=== PATIENT | female | born 1980 | race Caucasian/White ===

== ENCOUNTER 2016-06-09 12:06 | Emergency (ER) | payer MEDICAID ==
[2016-06-09 12:50] LABS: BASOPHILS 0.3 % (0.0-2.0); EOSINOPHILS 0.9 % (0-7); HEMATOCRIT 38.9 % (36.0-48.0); HEMOGLOBIN 12.6 g/dL (12-16); IMMATURE GRANULOCYTES 0.1 % (0-5); MCH 29.2 pg (26.0-34.0); MCHC 32.4 g/dL (31.0-37.0); MCV 90.3 fL (80.0-100.0); MEAN PLATELET VOLUME 11.1 fL (7.4-10.4); MONOCYTES 12.5 % (2-11); NEUTROPHILS 58.2 % (40-80); RBC 4.31 10x6/uL (4.00-5.40); RDW 12.7 % (11.5-14.5); WBC 7.8 10x3/uL (4.8-10.8)
[2016-06-09 13:10] LABS: ALBUMIN 3.9 g/dL (3.4-5.0); ALKALINE PHOSPHATASE 58 U/L (46-116); ALT (SGPT) 17 U/L (10-68); CALC OSMOLALITY 277 mosm/kg (275-300); CALCIUM 8.7 mg/dL (8.5-10.1); CARBON DIOXIDE 24.3 mmol/L (21.0-32.0); CHLORIDE - SERUM 107 mmol/L (98-107); CREATININE - SERUM 0.8 mg/dL (0.6-1.3); GLUCOSE 105 mg/dL (74-106); PROTEIN - SERUM 6.8 g/dL (6.4-8.2); SODIUM 140 mmol/L (136-145); UREA NITROGEN 9 mg/dL (7-18); eGFR NON AFRICAN AMERICAN 85 mL/min (90-120)
[2016-06-09 13:13] LABS: PLATELET COUNT 193 10x3/uL (130-400)
[2016-06-09 14:53] LABS: APPEARANCE HAZY (CLEAR); BILIRUBIN NEGATIVE (NEGATIVE); COLOR YELLOW (YELLOW); GLUCOSE NEGATIVE (NEGATIVE); KETONE NEGATIVE (NEGATIVE); LEUKOCYTE ESTERASE NEGATIVE (NEGATIVE); NITRITE NEGATIVE (NEGATIVE); PROTEIN NEGATIVE (NEGATIVE); SPECIFIC GRAVITY 1.015 (1.005-1.020); UROBILINOGEN NORMAL (NORMAL)
== END 2016-06-09 17:16 | disposition home or self-care (01) ==
LOC: D.ER 12:06
PROVIDERS: Family Medicine
DX: R10.32 Left lower quadrant pain (principal); K62.5 Hemorrhage of anus and rectum; K60.2 Anal fissure, unspecified; K21.9 Gastro-esophageal reflux disease without esophagitis; F31.9 Bipolar disorder, unspecified; E11.9 Type 2 diabetes mellitus without complications; G40.909 Epilepsy, unspecified, not intractable, without status epilepticus; M79.7 Fibromyalgia; F43.10 Post-traumatic stress disorder, unspecified; Z86.73 Personal history of transient ischemic attack (TIA), and cerebral infarction without residual deficits

== ENCOUNTER 2016-09-19 14:51 | Emergency (ER) | payer MEDICARE | END 2016-09-19 19:02 | disposition home or self-care (01) | LOC: D.ER 14:51 | DX: K59.00 Constipation, unspecified (principal); K21.9 Gastro-esophageal reflux disease without esophagitis; F31.89 Other bipolar disorder; G40.909 Epilepsy, unspecified, not intractable, without status epilepticus; F43.10 Post-traumatic stress disorder, unspecified; F17.200 Nicotine dependence, unspecified, uncomplicated ==

== ENCOUNTER 2016-11-08 13:08 | Emergency (ER) | payer MEDICARE ==
[2016-11-08 14:01] LABS: BASOPHILS 0.2 % (0-2); EOSINOPHILS 0.7 % (0-7); HEMATOCRIT 41.5 % (36.0-48.0); HEMOGLOBIN 13.8 g/dL (12-16); IMMATURE GRANULOCYTES 0.2 % (0-5); LYMPHOCYTES 22.7 % (15-50); MCH 29.7 pg (26.0-34.0); MCHC 33.3 g/dL (31.0-37.0); MCV 89.4 fL (80.0-100.0); MEAN PLATELET VOLUME 11.4 fL (7.4-10.4); MONOCYTES 9.6 % (2-11); NEUTROPHILS 66.6 % (40-80); PLATELET COUNT 207 10x3/uL (130-400); RBC 4.64 10x6/uL (4.00-5.40); RDW 12.9 % (11.5-14.5); WBC 9.2 10x3/uL (4.8-10.8)
[2016-11-08 14:13] LABS: ALBUMIN 4.2 g/dL (3.4-5.0); ANION GAP 16.4 mmol/L (8-16); BILIRUBIN - TOTAL 0.55 mg/dL (0.2-1.3); CALCIUM 9.1 mg/dL (8.5-10.1); CARBON DIOXIDE 20.8 mmol/L (21.0-32.0); POTASSIUM - SERUM 4.2 mmol/L (3.5-5.1); PROTEIN - SERUM 7.3 g/dL (6.4-8.2)
== END 2016-11-08 16:15 | disposition home or self-care (01) ==
LOC: D.ER 13:08
PROVIDERS: Nurse Practitioner Family
DX: G44.209 Tension-type headache, unspecified, not intractable (principal); S16.1XXA Strain of muscle, fascia and tendon at neck level, initial encounter; X58.XXXA Exposure to other specified factors, initial encounter; Y93.89 Activity, other specified; Y92.89 Other specified places as the place of occurrence of the external cause; M62.838 Other muscle spasm; K21.9 Gastro-esophageal reflux disease without esophagitis; F31.89 Other bipolar disorder

== ENCOUNTER 2017-03-18 10:55 | Emergency (ER) | payer MEDICARE | END 2017-03-18 14:02 | disposition home or self-care (01) | LOC: D.ER 10:55 | DX: J06.9 Acute upper respiratory infection, unspecified (principal); J01.90 Acute sinusitis, unspecified; J20.9 Acute bronchitis, unspecified; K21.9 Gastro-esophageal reflux disease without esophagitis; E11.9 Type 2 diabetes mellitus without complications; F17.200 Nicotine dependence, unspecified, uncomplicated ==

== ENCOUNTER 2017-04-05 16:29 | Emergency (ER) | payer MEDICARE | END 2017-04-05 17:27 | disposition home or self-care (01) | LOC: D.ER 16:29 | DX: K08.89 Other specified disorders of teeth and supporting structures (principal) ==

== ENCOUNTER 2017-07-12 17:11 | Emergency (ER) | payer MEDICARE | END 2017-07-12 19:26 | disposition home or self-care (01) | LOC: D.ER 17:11 | DX: M54.16 Radiculopathy, lumbar region (principal); F17.200 Nicotine dependence, unspecified, uncomplicated ==

== ENCOUNTER 2017-10-07 23:33 | Emergency (ER) | payer MEDICARE ==
[~2017-10-07] VITALS: Ht 160 cm; Wt 75.0 kg
[2017-10-08 00:05] VITALS: Ht 160 cm; Wt 75.0 kg
[2017-10-08] MEDS ORDERED: TROKENDI XR100 MG PO (00:08)
[2017-10-08] MEDS ORDERED: DEPAKOTE500 MG PO (00:08)
[2017-10-08] MEDS ORDERED: ESTRACE2 MG PO (00:09)
[2017-10-08] MEDS ORDERED: PROPAFENONE HC225 MG PO (00:09)
[2017-10-08] MEDS ORDERED: VALIUM 2 MG TAB2 MG PO (02:01)
[2017-10-08 02:37] VITALS: BP 118/86
== END 2017-10-08 02:30 | disposition home or self-care (01) ==
LOC: D.ER 23:33
DX: M62.838 Other muscle spasm (principal); S29.012A Strain of muscle and tendon of back wall of thorax, initial encounter; X58.XXXA Exposure to other specified factors, initial encounter; Y93.89 Activity, other specified; Y92.019 Unspecified place in single-family (private) house as the place of occurrence of the external cause; M54.2 Cervicalgia; F17.200 Nicotine dependence, unspecified, uncomplicated

== ENCOUNTER 2017-12-21 21:28 | Emergency (ER) | payer MEDICARE ==
[~2017-12-21] VITALS: Ht 160 cm; Wt 77.3 kg
[~2017-12-21 21:28] MED LIST: DEPAKOTE500 MG PO; ESTRACE2 MG PO; PROPAFENONE HC225 MG PO; TROKENDI XR100 MG PO; VALIUM 2 MG TAB2 MG PO
[2017-12-21 21:50] VITALS: Ht 160 cm; Wt 77.3 kg
[2017-12-22] MEDS ORDERED: HYDROCODONE-APA1 TAB PO (01:16)
[2017-12-22] MEDS ORDERED: ZANAFLEX4 MG PO (01:16)
[2017-12-22 01:41] VITALS: BP 127/82
== END 2017-12-22 01:28 | disposition home or self-care (01) ==
LOC: D.ER 21:28
DX: M54.12 Radiculopathy, cervical region (principal); S16.1XXA Strain of muscle, fascia and tendon at neck level, initial encounter; X50.0XXA Overexertion from strenuous movement or load, initial encounter; Y93.89 Activity, other specified; Y92.89 Other specified places as the place of occurrence of the external cause; G40.909 Epilepsy, unspecified, not intractable, without status epilepticus; F17.200 Nicotine dependence, unspecified, uncomplicated

== ENCOUNTER → 2018-02-17 11:03 | Outpatient (CLI) | payer MEDICARE ==
[2017-12-21 21:50] VITALS: BMI 30.1
[~2018-02-17 11:03] MED LIST changes: +HYDROCODONE-APA1 TAB PO; +ZANAFLEX4 MG PO
== END | disposition home or self-care (01) ==
LOC: D.US 11:03
DX: R22.9 Localized swelling, mass and lump, unspecified (principal)

== ENCOUNTER 2019-01-30 12:54 | Emergency (ER) | payer MEDICARE ==
[~2019-01-30] VITALS: Ht 160 cm; Wt 76.4 kg
[2019-01-30 13:17] VITALS: BP 114/78; Ht 160 cm; Wt 76.4 kg
== END 2019-01-30 13:51 | disposition left against medical advice (07) ==
LOC: D.ER 12:54
DX: R25.2 Cramp and spasm (principal)

== ENCOUNTER 2019-03-11 13:09 | Emergency (ER) | payer MEDICARE ==
[~2019-03-11] VITALS: Ht 160 cm; Wt 72.7 kg
[2019-03-11 13:18] VITALS: Ht 160 cm; Wt 72.7 kg
[2019-03-11 13:41] LABS: APPEARANCE CLEAR (CLEAR); BILIRUBIN NEGATIVE (NEGATIVE); COLOR STRAW (YELLOW); GLUCOSE NEGATIVE (NEGATIVE); KETONE NEGATIVE (NEGATIVE); NITRITE NEGATIVE (NEGATIVE); PROTEIN NEGATIVE (NEGATIVE); UROBILINOGEN NORMAL (NORMAL)
[2019-03-11 13:47] LABS: BASOPHILS 0.2 % (0-2); EOSINOPHILS 1.5 % (0-7); HEMATOCRIT 42.8 % (36.0-48.0); HEMOGLOBIN 14.1 g/dL (12-16); IMMATURE GRANULOCYTES 0.3 % (0-5); LYMPHOCYTES 27.6 % (15-50); MCH 29.8 pg (26.0-34.0); MCHC 32.9 g/dL (31.0-37.0); MCV 90.5 fL (80.0-100.0); MEAN PLATELET VOLUME 10.3 fL (7.4-10.4); MONOCYTES 11.7 % (2-11); NEUTROPHILS 58.7 % (40-80); PLATELET COUNT 241 10x3/uL (130-400); RBC 4.73 10x6/uL (4.00-5.40); RDW 12.3 % (11.5-14.5); WBC 8.8 10x3/uL (4.8-10.8)
[2019-03-11 13:54] LABS: INR 1.12 (0.85-1.17); PROTIME 13.9 SECONDS (11.6-15.0)
[2019-03-11 13:55] LABS: APTT 31.7 SECONDS (22.8-39.4)
[2019-03-11 13:57] LABS: ANION GAP 14.6 mmol/L (8-16); CARBON DIOXIDE 25.3 mmol/L (21.0-32.0); CREATININE - SERUM 0.9 mg/dL (0.6-1.3); POTASSIUM - SERUM 3.9 mmol/L (3.5-5.1)
[2019-03-11 14:03] LABS: ALBUMIN 3.9 g/dL (3.4-5.0); BILIRUBIN - TOTAL 0.36 mg/dL (0.2-1.3); PROTEIN - SERUM 7.2 g/dL (6.4-8.2)
[2019-03-11] MEDS ORDERED: PROCTOFOAM-HC 110 GM RC (17:25)
[2019-03-11] MEDS ORDERED: FIBER THERAPY1368 GM PO (17:25)
[2019-03-11 17:49] VITALS: BP 124/73
== END 2019-03-11 17:50 | disposition home or self-care (01) ==
LOC: D.ER 13:09
PROVIDERS: Family Medicine
DX: K64.8 Other hemorrhoids (principal); R10.9 Unspecified abdominal pain; R56.9 Unspecified convulsions; M79.7 Fibromyalgia; G43.909 Migraine, unspecified, not intractable, without status migrainosus; F43.10 Post-traumatic stress disorder, unspecified; F31.9 Bipolar disorder, unspecified; Z72.0 Tobacco use

== ENCOUNTER 2019-04-10 12:10 | Inpatient (IN) | payer MEDICARE ==
[~2019-04-10] VITALS: Ht 160 cm; Wt 81.6 kg
[~2019-04-10 12:10] MED LIST changes: +FIBER THERAPY1368 GM PO; +PROCTOFOAM-HC 110 GM RC
[2019-04-10] MEDS ORDERED: KEFLEX (12:27)
[2019-04-10 12:48] LABS: BASOPHILS 0.1 % (0-2); EOSINOPHILS 0.3 % (0-7); HEMOGLOBIN 13.5 g/dL (12-16); IMMATURE GRANULOCYTES 0.3 % (0-5); LYMPHOCYTES 20.6 % (15-50); MCH 29.5 pg (26.0-34.0); MCHC 32.9 g/dL (31.0-37.0); MCV 89.5 fL (80.0-100.0); MEAN PLATELET VOLUME 10.1 fL (7.4-10.4); MONOCYTES 7.9 % (2-11); NEUTROPHILS 70.8 % (40-80); RBC 4.58 10x6/uL (4.00-5.40); RDW 12.6 % (11.5-14.5); WBC 9.8 10x3/uL (4.8-10.8)
[2019-04-10 12:51] LABS: APPEARANCE CLEAR (CLEAR); BILIRUBIN NEGATIVE (NEGATIVE); COLOR YELLOW (YELLOW); GLUCOSE NEGATIVE (NEGATIVE); KETONE NEGATIVE (NEGATIVE); NITRITE NEGATIVE (NEGATIVE); PROTEIN NEGATIVE (NEGATIVE); UROBILINOGEN NORMAL (NORMAL)
[2019-04-10 12:53] LABS: PLATELET COUNT 290 10x3/uL (130-400)
[2019-04-10 13:06] LABS: CALC OSMOLALITY 276 mosm/kg (275-300); CALCIUM 9.5 mg/dL (8.5-10.1); CARBON DIOXIDE 25.1 mmol/L (21.0-32.0); CHLORIDE - SERUM 105 mmol/L (98-107); CREATININE - SERUM 0.7 mg/dL (0.6-1.3); GLUCOSE 102 mg/dL (74-106); POTASSIUM - SERUM 4.5 mmol/L (3.5-5.1); SODIUM 140 mmol/L (136-145); UREA NITROGEN 8 mg/dL (7-18); eGFR NON AFRICAN AMERICAN > 90 mL/min (90-120)
[2019-04-10 13:14] LABS: ALBUMIN 4.1 g/dL (3.4-5.0); ALKALINE PHOSPHATASE 88 U/L (46-116); ALT (SGPT) 39 U/L (10-68); AMYLASE - SERUM 65 U/L (25-115); LIPASE 82 U/L (73-393); PROTEIN - SERUM 7.3 g/dL (6.4-8.2)
[2019-04-10 13:15] LABS: TROPONIN-I < 0.017 ng/mL (0.000-0.060)
[2019-04-10 14:00] VITALS: BP 107/65
[2019-04-10 15:00] VITALS: BP 103/65
[2019-04-10 16:00] VITALS: BP 119/78
--- NOTE | 2019-04-10 18:00 | NUR ---
MERREM INFUSION COMPLETE AT 1743.
[2019-04-10] MEDS ORDERED: DEPAKOTE500 MG PO (18:11)
[2019-04-10] MEDS ORDERED: CYMBALTA60 MG PO (18:13)
[2019-04-10] MEDS ORDERED: CYMBALTA30 MG PO (18:13)
[2019-04-10 18:17] VITALS: BP 124/77
[2019-04-10 18:21] LABS: APTT 31.5 SECONDS (22.8-39.4); INR 1.12 (0.85-1.17); PROTIME 13.9 SECONDS (11.6-15.0)
[2019-04-10 18:39] VITALS: BP 124/77; BMI 31.9
[2019-04-10 19:30] VITALS: BP 111/72
--- NOTE | 2019-04-10 21:35 | NUR ---
OFFERED PT HYDROCODONE 5MG ORDERED BY MARSHALL SULTANA. SHE REFUSED AND STATES, "I TAKE 10MG ALL OF THE TIME AND I KNOW 5MG ISNT GOING TO DO ANYTHING SO I DONT WANT IT." ASKED PT WHAT SHE WANTED AND SHE STATES, "I HAVE TAKEN PERCOCET AND NORCO 10MG." PT THEN ASKING WHY SHE IS JUST GETTING NS IN IV. STATES, "I'M SUPPOSED TO BE ON ANTIBIOTICS FOR AN INFECTION AND ALL YOURE GIVING ME IS SALINE?" ATTEMPTED TO EXPLAIN TO PT THAT SHE GOT IV ANTIBIOTICS EARLIER AND THEY ARENT DUE AGAIN UNTIL 3 AM. SHE STAES, "WELL, IM GOING HOME TOMORROW ANYWAY." REPORTED THIS TO MARSHALL SULTANA. NEW ORDER NOTED FOR NORCO 10MG Q 8 HOURS.
--- NOTE | 2019-04-10 21:45 | NUR ---
MEDICATED WITH NORCO 10 MG FOR C/O LLQ PAIN
--- NOTE | 2019-04-10 22:20 | NUR ---
CONSUMED 2 ORANGE JELLOS THEN CALLED STAFF INTO ROOM TO SAY SHE HAD VOMITED IN TRASHCAN. MEDICATED WITH ZOFRAN ORDERED. CL IN REACH.
--- NOTE | 2019-04-10 22:39 | NUR ---
VOMITED SMALL AMOUNT OF ORANGE EMESIS IN TRASHCAN AFTER EATING ORANGE JELLO. MEDICATED WITH ZOFRAN FOR NAUSEA. CL IN REACH.
[2019-04-11 00:15] VITALS: BP 107/72
--- NOTE | 2019-04-11 02:52 | NUR ---
RESTING WITH EYES CLOSED. RESP EVEN AND NONLABORED. CL IN REACH.
--- NOTE | 2019-04-11 03:40 | NUR ---
AWAKENED FOR V/S. NO COMPLAINTS. NO DISTRESS. CL IN REACH.
[2019-04-11 03:49] VITALS: BP 117/75
[2019-04-11 06:32] LABS: BASOPHILS 0.2 % (0-2); HEMATOCRIT 36.6 % (36.0-48.0); HEMOGLOBIN 11.7 g/dL (12-16); IMMATURE GRANULOCYTES 0.2 % (0-5); LYMPHOCYTES 26.2 % (15-50); MCH 28.9 pg (26.0-34.0); MCV 90.4 fL (80.0-100.0); MEAN PLATELET VOLUME 10.3 fL (7.4-10.4); MONOCYTES 12.6 % (2-11); NEUTROPHILS 59.8 % (40-80); PLATELET COUNT 238 10x3/uL (130-400); RBC 4.05 10x6/uL (4.00-5.40); RDW 12.5 % (11.5-14.5)
[2019-04-11 06:41] LABS: WBC 6.3 10x3/uL (4.8-10.8)
[2019-04-11 07:00] VITALS: BP 108/70
--- NOTE | 2019-04-11 07:00 | NUR ---
PT REPORT RECEIVED FROM FLIGHT SERVICE SPECIALIST NURSE. SHIFT ASSESSMENT COMPLETED AT THIS TIME. NO VISIBLE SIGNS OF DISTRESS NOTED. WILL CONTINUE TO MONITOR
[2019-04-11 07:09] LABS: ALBUMIN 3.3 g/dL (3.4-5.0); ALKALINE PHOSPHATASE 71 U/L (46-116); ALT (SGPT) 31 U/L (10-68); BILIRUBIN - TOTAL 0.46 mg/dL (0.2-1.3); CALC OSMOLALITY 281 mosm/kg (275-300); CALCIUM 8.3 mg/dL (8.5-10.1); CARBON DIOXIDE 25.9 mmol/L (21.0-32.0); CHLORIDE - SERUM 108 mmol/L (98-107); CREATININE - SERUM 0.7 mg/dL (0.6-1.3); GLUCOSE 94 mg/dL (74-106); MAGNESIUM - SERUM 1.8 mg/dL (1.8-2.4); PHOSPHOROUS 4.5 mg/dL (2.5-4.9); POTASSIUM - SERUM 3.9 mmol/L (3.5-5.1); PROTEIN - SERUM 5.9 g/dL (6.4-8.2); SODIUM 142 mmol/L (136-145); UREA NITROGEN 9 mg/dL (7-18); VALPROIC ACID (DEPAKOTE) 3.5 ug/mL (50.0-100.0); eGFR NON AFRICAN AMERICAN > 90 mL/min (90-120)
--- NOTE | 2019-04-11 08:15 | NUR ---
PT COMPLAINING OF N/V. SAW PT DRY HEAVING INTO BAG. NO VOMIT NOTED. GAVE PT ZOFRAN. WILL CONTINUE TO MONITOR
[2019-04-11 11:00] VITALS: BP 110/75
--- NOTE | 2019-04-11 11:00 | NUR ---
DR ROCK MAKING ROUNDS. AT BEDSIDE. UPDATE GIVEN. WILL CONTINUE TO MONITOR
[2019-04-11 13:44] VITALS: Ht 160 cm; Wt 81.6 kg
[2019-04-11 15:00] VITALS: BP 122/84
--- NOTE | 2019-04-11 16:30 | MORECARE ---
CASE MANAGEMENT DISCHARGE SUMMARY PATIENT: AFSHIN PEARCE UNIT: [id number] ADM DATE: 04/10/19 AGE: 38 : [birth year] SEX: F ROOM/BED: D.1205 AUTHOR: JOLIE BOLANOS PHYSICIAN: REFERRING PHYSICIAN: RAFAEL ROCK MD DATE OF SERVICE: 04/11/19 Discharge Plan Patient Name: AFSHIN PEARCE [facility] [facility] 1980 Planned Disposition: Home Anticipated Discharge Date: Discharge Date: Expected LOS: Initial Reviewer: [email or web address] Initial Review Date: 04/11/2019 Generated: 04/11/19 5:30 pm Comments DCP- Discharge Planning Updated by [id number]: Anca Rodríguez on 04/11/19 3:[address] Patient Name: AFSHIN PEARCE Admission Status: ER Accout number: [id number] Admission Date: 04-10-2019 : 1980 Admission Diagnosis: Attending: RAFAEL GROSS Current LOS: 1 Anticipated DC Date: Planned Disposition: Home Primary Insurance: MEDICARE A & B Discharge Planning Comments: CM MET WITH PATIENT AFTER OBTAINING VERBAL CONSENT. STATES PLANS TO DISCHARGE TO HOME. DISCUSSED NEED FOR HH, REHAB OR EQUIPMENT, PATIENT STATES NO NEEDS. CM WILL FOLLOW AND ASSIST NEEDED. Gravure Printing Machinist: Anca Rodríguez DCPIA - Discharge Planning Initial Assessment Updated by [email or web address]: Anca Rodríguez on 04/11/19 4:26 pm * Is the patient Alert and Oriented? Yes * PCP CALDERON * Pharmacy [facility] * Preadmission Environment Home with Family * ADLs Independent * Please name any agencies selected above. NONE * Additional services required to return to the preadmission environment? No * Can the patient safely return to the preadmission environment? Yes * Has this patient been hospitalized within the prior 30 days at any hospital? No Patient Name: AFSHIN PEARCE Page 25526 at 1630 All edits/amendments must be made on the electronic document DICTATION DATE: 04/11/19 1630 HEALTH CENTER ASSISTANT: MARGOTH 04/11/19 1630 RPT#: [id number] DC DATE: STATUS: ADM IN [facility] [address] [facility] [place] [address] END OF REPORT
--- NOTE | 2019-04-11 18:30 | NUR ---
PT COMPLAINING OF PAIN. GIVEN NORCO 10. WILL CONTINUE TO MONITOR
[2019-04-11 19:15] VITALS: BP 122/82
--- NOTE | 2019-04-11 19:15 | NUR ---
PATIENT RESTING IN BED AND DENIES NEEDS AT THIS TIME. BED IN LOWEST POSITION AND CALL LIGHT WITHIN REACH. ENCOURAGED THE PATIENT TO CALL IF SHE HAS NEEDS. VSS. WILL CONTINUE TO MONITOR.
--- NOTE | 2019-04-11 20:49 | NUR ---
PATIENT RESTING IN BED WITH GUEST AT BEDSIDE. REQUESTED PERMISSION TO REVIEW AND ADMINISTER MEDS WITH GUEST IN ROOM. PATIENT AGREED. ADMINISTERED MEDS PER ORDERS. PATIENT DENIES OTHER NEEDS AT THIS TIME. BED IN LOWEST POSITION AND CALL LIGHT WITHIN REACH. ENCOURAGED THE PATIENT TO CALL IF SHE HAS NEEDS. WILL CONTINUE TO MONITOR.
[2019-04-12 03:12] VITALS: BP 122/84
[2019-04-12 05:38] LABS: BASOPHILS 0.3 % (0-2); HEMATOCRIT 34.5 % (36.0-48.0); HEMOGLOBIN 11.1 g/dL (12-16); IMMATURE GRANULOCYTES 0.1 % (0-5); LYMPHOCYTES 24.7 % (15-50); MCH 28.8 pg (26.0-34.0); MCHC 32.2 g/dL (31.0-37.0); MCV 89.6 fL (80.0-100.0); MEAN PLATELET VOLUME 10.8 fL (7.4-10.4); MONOCYTES 10.7 % (2-11); NEUTROPHILS 63.2 % (40-80); PLATELET COUNT 230 10x3/uL (130-400); RBC 3.85 10x6/uL (4.00-5.40); RDW 12.3 % (11.5-14.5); WBC 6.8 10x3/uL (4.8-10.8)
[2019-04-12 06:07] LABS: CALC OSMOLALITY 278 mosm/kg (275-300); CHLORIDE - SERUM 108 mmol/L (98-107); CREATININE - SERUM 0.8 mg/dL (0.6-1.3); GLUCOSE 96 mg/dL (74-106); MAGNESIUM - SERUM 1.5 mg/dL (1.8-2.4); SODIUM 141 mmol/L (136-145); eGFR NON AFRICAN AMERICAN 84 mL/min (90-120)
[2019-04-12 06:08] LABS: UREA NITROGEN 6 mg/dL (7-18)
[2019-04-12 07:00] VITALS: BP 141/97
--- NOTE | 2019-04-12 07:15 | NUR ---
REPORT RECEIVED. PT SITTING UP IN BED. IV TO RIGHT AC WITH NORMAL SALINE AT 125ML/HR AND ZOFRAN DRIP. PT IS ALERT AND ORIENTED AND GETS UP AD ACE. DENIES NAUSEA AT THIS TIME. PT DIET ADVANCED TO FULL LIQUID. VSS. NO OTHER NEEDS AT THIS TIME. WILL CONTINUE TO MONITOR.
--- NOTE | 2019-04-12 09:30 | NUR ---
FAMILY AT BEDSIDE. TYLENOL WAS GIVEN FOR PAIN. NO OTHER NEEDS AT THIS TIME. WILL CONTINUE TO MONITOR.
[2019-04-12 11:00] VITALS: BP 126/93
--- NOTE | 2019-04-12 11:15 | NUR ---
VSS. PT RESTING QUIETLY. NO COMPLAINTS OR NEEDS AT THIS TIME.
--- NOTE | 2019-04-12 13:04 | NUR ---
PT RESTING QUIETLY. NO COMPLAINTS OR NEEDS AT THIS TIME. BED IN LOWEST POSITION. CALL LIGHT IN REACH.
[2019-04-12 15:00] VITALS: BP 134/83
--- NOTE | 2019-04-12 15:16 | NUR ---
CHARU OLIVARES, WITH GI ROUNDED ON PT. NO NEW ORDERS AT THIS TIME. WILL CONTINUE TO MONITOR.
--- NOTE | 2019-04-12 17:25 | NUR ---
PT ATTEMPTING TO EAT REGULAR DIET FOR DINNER. NO COMPLAINTS AT THIS TIME. WILL CONTINUE TO MONITOR.
[2019-04-12 20:00] VITALS: BP 130/81
--- NOTE | 2019-04-12 20:00 | NUR ---
ALERT SITTING UP IN BED, DENIES PAIN OR NAUSEA AT THIS TIME, SEE SHIFT ASSESSMENT, CALL LIGHT IN REACH
[2019-04-13] VITALS: BP 121/80
[2019-04-13 04:00] VITALS: BP 102/65
[2019-04-13 06:16] LABS: BASOPHILS 0.4 % (0-2); HEMATOCRIT 35.4 % (36.0-48.0); HEMOGLOBIN 11.6 g/dL (12-16); IMMATURE GRANULOCYTES 0.1 % (0-5); LYMPHOCYTES 24.5 % (15-50); MCH 28.9 pg (26.0-34.0); MCHC 32.8 g/dL (31.0-37.0); MCV 88.1 fL (80.0-100.0); MEAN PLATELET VOLUME 10.1 fL (7.4-10.4); PLATELET COUNT 232 10x3/uL (130-400); RBC 4.02 10x6/uL (4.00-5.40); RDW 12.4 % (11.5-14.5); WBC 7.7 10x3/uL (4.8-10.8)
[2019-04-13 06:30] LABS: CALC OSMOLALITY 282 mosm/kg (275-300); CALCIUM 8.1 mg/dL (8.5-10.1); CARBON DIOXIDE 23.9 mmol/L (21.0-32.0); CHLORIDE - SERUM 109 mmol/L (98-107); CREATININE - SERUM 0.8 mg/dL (0.6-1.3); GLUCOSE 101 mg/dL (74-106); MAGNESIUM - SERUM 1.7 mg/dL (1.8-2.4); PHOSPHOROUS 2.8 mg/dL (2.5-4.9); POTASSIUM - SERUM 3.8 mmol/L (3.5-5.1); SODIUM 143 mmol/L (136-145); UREA NITROGEN 7 mg/dL (7-18); eGFR NON AFRICAN AMERICAN 84 mL/min (90-120)
[2019-04-13 09:09] VITALS: BP 129/83
--- NOTE | 2019-04-13 12:52 | NUR ---
Nutrition Follow-up: Diet: Regular PO intake: ~42% average x 3 meals recorded; she reports that she is tolerating diet advancment. She denies nausea and vomiting. She states that she just wants to go home. Last BM: 04/12/19 x 4. WT: 180# (04/11/19) Significant meds: lactobacillus, merrem. labs reviewed. Continue Regular diet as tolerated. Patient declined oral nutrition supplements at this time. Will continue to monitor PO intake and wt trend. RD following.
[2019-04-13] MEDS ORDERED: NICODERM C1 PATCH .1 TRANSDERM (14:29)
[2019-04-13] MEDS ORDERED: PROTONIX40 MG PO (14:30)
[2019-04-13] MEDS ORDERED: FLORANEX / LACT1 TAB PO (14:30)
[2019-04-13] MEDS ORDERED: FLAGYL500 MG PO (14:34)
[2019-04-13] MEDS ORDERED: LEVOFLOXACIN500 MG PO (16:16)
--- NOTE | 2019-04-13 16:37 | NUR ---
D/C INSTRUCTIONS REVIEWED WITH PT. VERBALIZED UNDERSTANDING AND NO FURTHER QUESTIONS AT THIS TIME. WORK EXCUSE PROVIDED. MEDICATINS CALLED INTO [facility] ON [address] TO [address]. IV D/C WITH CATHETER TIP INTACT. PT REFUSES WHEELCHAIR OUT. WILL AMBULATE. PT HAS STEADY GATE. LEFT WITH ALL BELONGINGS.
--- NOTE | 2019-04-13 16:58 | MORECARE ---
CASE MANAGEMENT DISCHARGE SUMMARY PATIENT: AFSHIN PEARCE UNIT: [id number] ADM DATE: 04/10/19 AGE: 38 : [birth year] SEX: F ROOM/BED: D.1205 AUTHOR: LUIS MIGUEL,DOC PHYSICIAN: REFERRING PHYSICIAN: RAFAEL ROCK MD DATE OF SERVICE: 04/13/19 Discharge Plan Patient Name: AFSHIN PEARCE Facility: [facility]:[place] : 1980 Planned Disposition: Home Anticipated Discharge Date: Discharge Date: 04/13/2019 Expected LOS: Initial Reviewer: [email or web address] Initial Review Date: 04/11/2019 Generated: 04/13/19 5:58 pm Comments DCP- Discharge Planning Updated by [email or web address]: Luzma Gudino on 04/13/19 3:[address] Patient Name: AFSHIN PEARCE Encounter No: [id number] : 1980 Primary Insurance: MEDICARE A & B Anticipated DC Date: Planned Disposition: Home External Planned Provider: : DCP follow-up note: Patient and family in agreement with discharge plan. No changes to plan. Case management will follow and assist as needed. Luzma Gudino DCP- Discharge Planning Updated by [id number]: Anca Rodríguez on 04/11/19 3:[address] Patient Name: AFSHIN PEARCE Admission Status: ER Accout number: [id number] Admission Date: 04-10-2019 : 1980 Admission Diagnosis: Attending: RAFAEL GROSS Current LOS: 1 Anticipated DC Date: Planned Disposition: Home Primary Insurance: MEDICARE A & B Discharge Planning Comments: CM MET WITH PATIENT AFTER OBTAINING VERBAL CONSENT. STATES PLANS TO DISCHARGE TO HOME. DISCUSSED NEED FOR HH, REHAB OR EQUIPMENT, PATIENT STATES NO NEEDS. CM WILL FOLLOW AND ASSIST NEEDED. Fox Farmer: Anca Rodríguez DCPIA - Discharge Planning Initial Assessment Updated by [id number]: Anca Rodríguez on 04/11/19 4:26 pm * Is the patient Alert and Oriented? Yes * PCP [facility]ON * Pharmacy [facility] * Preadmission Environment Home with Family * ADLs Independent * Please name any agencies selected above. NONE * Additional services required to return to the preadmission environment? No * Can the patient safely return to the preadmission environment? Yes * Has this patient been hospitalized within the prior 30 days at any hospital? No Coverage Notice Reviewer: [id number] Demetrice Gudino Notice Issued Date-Time: 04/13/2019 16:51 Notice Type: IM Discharge Notice Notice Delivered To: Patient Relationship to Patient: Self Time Piece Repairer Name: Delivery Method: HAND - Hand Delivered Elsie Days: Prior Verbal Notification: Recipient Understood Notice: Yes Recipient Signature: Yes Med Rec Note Co-signed by Attending: Coverage Notice Comment: IMM EXPLAINED, SIGNED, GIVEN, COPY PLACED IN MR Last DP export: 04/11/19 3:30 Patient Name: AFSHIN PEARCE Page 83737 at 1658 All edits/amendments must be made on the electronic document DICTATION DATE: 04/13/191656 CROP SETTING OUT MACHINE OPERATOR: MARGOTH 04/13/191656 RPT#: [id number] DC DATE:04/13/19 STATUS: DIS IN [facility] [address] [place] [address] END OF REPORT
--- NOTE | 2019-04-13 18:54 | MORECARE ---
CASE MANAGEMENT DISCHARGE SUMMARY PATIENT: AFSHIN PEARCE UNIT: [id number] ADM DATE: 04/10/19 AGE: 38 : [birth year] SEX: F ROOM/BED: D.1205 AUTHOR: LUIS MIGUEL,DOC PHYSICIAN: REFERRING PHYSICIAN: RAFAEL ROCK MD DATE OF SERVICE: 04/13/19 Discharge Plan Patient Name: AFSHIN PEARCE Facility: [facility]:[place] : 1980 Planned Disposition: Home Anticipated Discharge Date: Discharge Date: 04/13/2019 Expected LOS: Initial Reviewer: [email or web address] Initial Review Date: 04/11/2019 Generated: 04/13/19 7:53 pm Comments DCP- Discharge Planning Updated by [email or web address]: Luzma Gudino on 04/13/19 3:[address] Patient Name: AFSHIN PEARCE Encounter No: [id number] : 1980 Primary Insurance: MEDICARE A & B Anticipated DC Date: Planned Disposition: Home External Planned Provider: : DCP follow-up note: Patient and family in agreement with discharge plan. No changes to plan. Case management will follow and assist as needed. Luzma Gudino DCP- Discharge Planning Updated by [id number]: Anca Rodríguez on 04/11/19 3:[address] Patient Name: AFSHIN PEARCE Admission Status: ER Accout number: [id number] Admission Date: 04-10-2019 : 1980 Admission Diagnosis: Attending: RAFAEL GROSS Current LOS: 1 Anticipated DC Date: Planned Disposition: Home Primary Insurance: MEDICARE A & B Discharge Planning Comments: CM MET WITH PATIENT AFTER OBTAINING VERBAL CONSENT. STATES PLANS TO DISCHARGE TO HOME. DISCUSSED NEED FOR HH, REHAB OR EQUIPMENT, PATIENT STATES NO NEEDS. CM WILL FOLLOW AND ASSIST NEEDED. Zyglo Inspector: Anca Rodríguez DCPIA - Discharge Planning Initial Assessment Updated by [id number]: Anca Rodríguez on 04/11/19 4:26 pm * Is the patient Alert and Oriented? Yes * PCP [facility] * Pharmacy [facility] * Preadmission Environment Home with Family * ADLs Independent * Please name any agencies selected above. NONE * Additional services required to return to the preadmission environment? No * Can the patient safely return to the preadmission environment? Yes * Has this patient been hospitalized within the prior 30 days at any hospital? No Coverage Notice Reviewer: [id number] Demetrice Gudino Notice Issued Date-Time: 04/13/2019 16:51 Notice Type: IM Discharge Notice Notice Delivered To: Patient Relationship to Patient: Self Structural Engineering Technician Name: Delivery Method: HAND - Hand Delivered Elsie Days: Prior Verbal Notification: Recipient Understood Notice: Yes Recipient Signature: Yes Med Rec Note Co-signed by Attending: Coverage Notice Comment: IMM EXPLAINED, SIGNED, GIVEN, COPY PLACED IN MR Last DP export: 04/13/19 3:58 Patient Name: AFSHIN PEARCE Page 66541 at 1854 All edits/amendments must be made on the electronic document DICTATION DATE: 04/13/191852 MACHINE WELDER: MARGOTH 04/13/191852 RPT#: [id number] DC DATE:04/13/19 STATUS: DIS IN [facility] [address] [place] [address] END OF REPORT
== END 2019-04-13 16:40 | disposition home or self-care (01) | DRG 392 ==
LOC: D.ER 12:10 → D.M3 16:15
PROVIDERS: Family Medicine; ADMIT Family Medicine; ATTEND Family Medicine
DX: K57.92 Diverticulitis of intestine, part unspecified, without perforation or abscess without bleeding (principal); F17.213 Nicotine dependence, cigarettes, with withdrawal; G40.909 Epilepsy, unspecified, not intractable, without status epilepticus; F31.9 Bipolar disorder, unspecified; K21.9 Gastro-esophageal reflux disease without esophagitis; K59.00 Constipation, unspecified; F41.8 Other specified anxiety disorders; Z86.73 Personal history of transient ischemic attack (TIA), and cerebral infarction without residual deficits

== ENCOUNTER 2019-04-23 18:19 | Emergency (ER) | payer MEDICARE ==
[~2019-04-23] VITALS: Ht 160 cm; Wt 78.6 kg
[~2019-04-23 18:19] MED LIST changes: +CYMBALTA30 MG PO; +CYMBALTA60 MG PO; +FLAGYL500 MG PO; +FLORANEX / LACT1 TAB PO; +KEFLEX; +LEVOFLOXACIN500 MG PO; +NICODERM C1 PATCH .1 TRANSDERM; +PROTONIX40 MG PO
[2019-04-23 18:35] VITALS: BP 121/79; Ht 160 cm; Wt 78.6 kg
== END 2019-04-23 18:50 | disposition left against medical advice (07) ==
LOC: D.ER 18:19
DX: K92.1 Melena (principal)

== ENCOUNTER → 2019-05-07 15:01 | Outpatient (CLI) | payer MEDICARE ==
[2019-04-23 18:35] VITALS: BMI 30.7
[2019-05-07 15:18] LABS: BASOPHILS 0.2 % (0-2); EOSINOPHILS 0.6 % (0-7); HEMATOCRIT 42.4 % (36.0-48.0); HEMOGLOBIN 14.2 g/dL (12-16); IMMATURE GRANULOCYTES 0.2 % (0-5); LYMPHOCYTES 22.5 % (15-50); MCH 30.2 pg (26.0-34.0); MCHC 33.5 g/dL (31.0-37.0); MCV 90.2 fL (80.0-100.0); MEAN PLATELET VOLUME 10.3 fL (7.4-10.4); NEUTROPHILS 65.5 % (40-80); PLATELET COUNT 228 10x3/uL (130-400); RDW 12.5 % (11.5-14.5); WBC 9.1 10x3/uL (4.8-10.8)
[2019-05-07 15:58] LABS: ALBUMIN 4.5 g/dL (3.4-5.0); ALKALINE PHOSPHATASE 80 U/L (46-116); ALT (SGPT) 18 U/L (10-68); BILIRUBIN - TOTAL 0.56 mg/dL (0.2-1.3); CALC OSMOLALITY 279 mosm/kg (275-300); CALCIUM 9.1 mg/dL (8.5-10.1); CARBON DIOXIDE 27.9 mmol/L (21.0-32.0); CHLORIDE - SERUM 104 mmol/L (98-107); CREATININE - SERUM 0.7 mg/dL (0.6-1.3); GLUCOSE 98 mg/dL (74-106); POTASSIUM - SERUM 4.6 mmol/L (3.5-5.1); PROTEIN - SERUM 7.4 g/dL (6.4-8.2); SODIUM 141 mmol/L (136-145); UREA NITROGEN 9 mg/dL (7-18); eGFR NON AFRICAN AMERICAN > 90 mL/min (90-120)
== END | disposition home or self-care (01) ==
LOC: D.LAB 15:01
PROVIDERS: ATTEND Internal Medicine Gastroenterology
DX: R12 Heartburn (principal); R11.2 Nausea with vomiting, unspecified; R19.7 Diarrhea, unspecified; R10.32 Left lower quadrant pain; D12.6 Benign neoplasm of colon, unspecified

== ENCOUNTER → 2019-05-24 11:57 | Outpatient (CLI) | payer MEDICARE ==
[2019-04-23 18:35] VITALS: BMI 30.7
== END | disposition home or self-care (01) ==
LOC: D.CT 05-21 08:30
PROVIDERS: ATTEND Internal Medicine Gastroenterology
DX: R10.32 Left lower quadrant pain (principal); R19.7 Diarrhea, unspecified; R11.2 Nausea with vomiting, unspecified

== ENCOUNTER 2019-10-29 16:34 | Emergency (ER) | payer MEDICARE ==
[~2019-10-29] VITALS: Ht 160 cm; Wt 79.1 kg
[2019-10-29 16:39] VITALS: Ht 160 cm; Wt 79.1 kg
[2019-10-29 17:27] LABS: BASOPHILS 0.2 % (0-2); EOSINOPHILS 0.1 % (0-7); HEMATOCRIT 44.7 % (36.0-48.0); HEMOGLOBIN 14.8 g/dL (12-16); IMMATURE GRANULOCYTES 0.4 % (0-5); LYMPHOCYTES 10.1 % (15-50); MCH 29.7 pg (26.0-34.0); MCHC 33.1 g/dL (31.0-37.0); MCV 89.8 fL (80.0-100.0); MEAN PLATELET VOLUME 10.5 fL (7.4-10.4); MONOCYTES 10.4 % (2-11); NEUTROPHILS 78.8 % (40-80); RBC 4.98 10x6/uL (4.00-5.40); RDW 12.7 % (11.5-14.5); WBC 9.5 10x3/uL (4.8-10.8)
[2019-10-29 17:28] LABS: PLATELET COUNT 168 10x3/uL (130-400)
[2019-10-29 17:36] LABS: CALC OSMOLALITY 272 mosm/kg (275-300); CALCIUM 8.6 mg/dL (8.5-10.1); CARBON DIOXIDE 25.4 mmol/L (21.0-32.0); CHLORIDE - SERUM 103 mmol/L (98-107); CREATININE - SERUM 0.9 mg/dL (0.6-1.3); GLUCOSE 115 mg/dL (74-106); POTASSIUM - SERUM 3.4 mmol/L (3.5-5.1); SODIUM 137 mmol/L (136-145); UREA NITROGEN 8 mg/dL (7-18); eGFR NON AFRICAN AMERICAN 73 mL/min (90-120)
[2019-10-29 17:45] LABS: ALBUMIN 4.1 g/dL (3.4-5.0); ALKALINE PHOSPHATASE 88 U/L (30-120); ALT (SGPT) 23 U/L (10-68); AMYLASE - SERUM 61 U/L (25-115); BILIRUBIN - TOTAL 0.32 mg/dL (0.2-1.3); LIPASE 73 U/L (73-393); PROTEIN - SERUM 7.3 g/dL (6.4-8.2)
[2019-10-29 18:01] LABS: SPECIFIC GRAVITY 1.025 (1.005-1.020)
[2019-10-29 18:02] LABS: BILIRUBIN NEGATIVE (NEGATIVE); GLUCOSE NEGATIVE (NEGATIVE); KETONE NEGATIVE (NEGATIVE); NITRITE NEGATIVE (NEGATIVE); UROBILINOGEN NORMAL (NORMAL)
[2019-10-29 18:03] LABS: BACTERIA MODERATE /hpf (NEGATIVE); RED CELLS - URINE 0-5 /hpf (0-5); WHITE CELLS - URINE 0-5 /hpf (NEGATIVE)
[2019-10-29 18:10] LABS: TROPONIN-I < 0.017 ng/mL (0.000-0.060)
[2019-10-29] MEDS ORDERED: LEVOFLOXACIN500 MG PO (19:23)
[2019-10-29] MEDS ORDERED: FLAGYL500 MG PO (19:23)
[2019-10-29] MEDS ORDERED: ZOFRAN ODT4 MG/UDTAB PO (19:23)
[2019-10-29] MEDS ORDERED: PROBIOTIC1 EAC1 PO (19:23)
[2019-10-29 20:29] VITALS: BP 122/83
== END 2019-10-29 20:29 | disposition home or self-care (01) ==
LOC: D.ER 16:34
PROVIDERS: Family Medicine
DX: K52.9 Noninfective gastroenteritis and colitis, unspecified (principal); F32.9 Major depressive disorder, single episode, unspecified; R11.2 Nausea with vomiting, unspecified; Z86.73 Personal history of transient ischemic attack (TIA), and cerebral infarction without residual deficits; J45.909 Unspecified asthma, uncomplicated; K21.9 Gastro-esophageal reflux disease without esophagitis

== ENCOUNTER 2019-10-30 12:42 | Inpatient (IN) | payer MEDICARE ==
[~2019-10-30] VITALS: Ht 160 cm; Wt 78.0 kg
[~2019-10-30 12:42] MED LIST changes: +PROBIOTIC1 EAC1 PO; +ZOFRAN ODT4 MG/UDTAB PO
[2019-10-30 14:34] LABS: BASOPHILS 0.1 % (0-2); CALC OSMOLALITY 277 mosm/kg (275-300); CALCIUM 9.1 mg/dL (8.5-10.1); CARBON DIOXIDE 26.7 mmol/L (21.0-32.0); CHLORIDE - SERUM 106 mmol/L (98-107); CREATININE - SERUM 0.9 mg/dL (0.6-1.3); EOSINOPHILS 0.9 % (0-7); GLUCOSE 105 mg/dL (74-106); HEMATOCRIT 43.3 % (36.0-48.0); HEMOGLOBIN 14.2 g/dL (12-16); IMMATURE GRANULOCYTES 0.1 % (0-5); LYMPHOCYTES 9.6 % (15-50); MCH 29.6 pg (26.0-34.0); MCHC 32.8 g/dL (31.0-37.0); MCV 90.4 fL (80.0-100.0); MEAN PLATELET VOLUME 11.2 fL (7.4-10.4); MONOCYTES 15.6 % (2-11); NEUTROPHILS 73.7 % (40-80); PLATELET COUNT 187 10x3/uL (130-400); RBC 4.79 10x6/uL (4.00-5.40); RDW 12.7 % (11.5-14.5); SODIUM 140 mmol/L (136-145); UREA NITROGEN 10 mg/dL (7-18); WBC 9.2 10x3/uL (4.8-10.8); eGFR NON AFRICAN AMERICAN 73 mL/min (90-120)
[2019-10-30 14:35] LABS: POTASSIUM - SERUM 4.2 mmol/L (3.5-5.1)
[2019-10-30 14:42] LABS: ALBUMIN 3.9 g/dL (3.4-5.0); ALKALINE PHOSPHATASE 82 U/L (30-120); ALT (SGPT) 20 U/L (10-68); AMYLASE - SERUM 52 U/L (25-115); BILIRUBIN - TOTAL 0.22 mg/dL (0.2-1.3); LIPASE 86 U/L (73-393); PROTEIN - SERUM 6.7 g/dL (6.4-8.2); TROPONIN-I < 0.017 ng/mL (0.000-0.060)
--- NOTE | 2019-10-30 15:30 | NUR ---
RECEIVED PT TO ROOM AT THIS TIME.
--- NOTE | 2019-10-30 15:47 | NUR ---
PT UNABLE TO URINATE AT THIS TIME. PT REFUSING STRAIT CATH AT THIS TIME.
--- NOTE | 2019-10-30 16:04 | NUR ---
URINE COLLECTED AND SENT TO LAB VIA TUBE SYSTEM.
[2019-10-30 16:26] LABS: BILIRUBIN NEGATIVE (NEGATIVE); GLUCOSE NEGATIVE (NEGATIVE); KETONE SMALL mg/dL (NEGATIVE); NITRITE NEGATIVE (NEGATIVE); SPECIFIC GRAVITY 1.025 (1.005-1.020); UROBILINOGEN NORMAL (NORMAL)
[2019-10-30 16:30] VITALS: BP 121/74
[2019-10-30 16:30] LABS: EPITHELIAL CELLS 0-5 /hpf (0-5); RED CELLS - URINE OCC /hpf (0-5); WHITE CELLS - URINE OCC /hpf (NEGATIVE)
[2019-10-30 16:31] LABS: BACTERIA FEW /hpf (NEGATIVE)
[2019-10-30 17:30] VITALS: BP 115/72
[2019-10-30 18:02] LABS: HCG SERUM NEGATIVE (NEGATIVE)
[2019-10-30 18:05] LABS: INR 1.04 (0.85-1.17); PROTIME 13.6 SECONDS (11.6-15.0)
[2019-10-30 18:06] LABS: APTT 29.8 SECONDS (22.8-39.4)
[2019-10-30 18:42] VITALS: BP 111/63
--- NOTE | 2019-10-30 18:48 | NUR ---
REPORT GIVEN TO EAMON SANDOVAL.
--- NOTE | 2019-10-30 19:27 | NUR ---
NS,ZOFRAN AND VANC INFUSING AT TRANSPORT
--- NOTE | 2019-10-30 20:00 | NUR ---
ALERT RESTING IN BED, REPORTS HAVING NAUSEA AND VOMITING X 2 DAYS, BETTER RIGHT NOW, ZOFRAN DRIP INFUSING, SEE SHIFT ASSESSMENT, CALL LIGHT IN REACH
[2019-10-30 23:57] VITALS: BP 108/52
[2019-10-31 00:49] VITALS: BP 111/63; Ht 160 cm; Wt 78.0 kg
[2019-10-31] MEDS ORDERED: CYMBALTA60 MG (01:39)
[2019-10-31] MEDS ORDERED: CYMBALTA30 MG (01:39)
[2019-10-31] MEDS ORDERED: ZYPREXA5 MG PO (01:40)
[2019-10-31] MEDS ORDERED: TEGRETOL 100 M100 MG PO (01:41)
[2019-10-31] MEDS ORDERED: HYDROXYCHLOROQ200 MG PO (01:44)
[2019-10-31 05:25] VITALS: BP 107/70
[2019-10-31 06:37] LABS: BASOPHILS 0.2 % (0-2); EOSINOPHILS 1.7 % (0-7); HEMATOCRIT 36.1 % (36.0-48.0); HEMOGLOBIN 11.6 g/dL (12-16); IMMATURE GRANULOCYTES 0.2 % (0-5); LYMPHOCYTES 20.9 % (15-50); MCHC 32.1 g/dL (31.0-37.0); MCV 90.3 fL (80.0-100.0); MEAN PLATELET VOLUME 10.3 fL (7.4-10.4); MONOCYTES 17.7 % (2-11); NEUTROPHILS 59.3 % (40-80); PLATELET COUNT 174 10x3/uL (130-400); RDW 12.5 % (11.5-14.5)
[2019-10-31 06:43] LABS: WBC 5.2 10x3/uL (4.8-10.8)
[2019-10-31 06:52] LABS: ALKALINE PHOSPHATASE 61 U/L (30-120); ALT (SGPT) 17 U/L (10-68); BILIRUBIN - TOTAL 0.21 mg/dL (0.2-1.3); CALC OSMOLALITY 279 mosm/kg (275-300); CARBON DIOXIDE 22.8 mmol/L (21.0-32.0); CHLORIDE - SERUM 109 mmol/L (98-107); CREATININE - SERUM 0.8 mg/dL (0.6-1.3); GLUCOSE 96 mg/dL (74-106); MAGNESIUM - SERUM 1.8 mg/dL (1.8-2.4); PROTEIN - SERUM 5.7 g/dL (6.4-8.2); SODIUM 141 mmol/L (136-145); UREA NITROGEN 11 mg/dL (7-18); eGFR NON AFRICAN AMERICAN 84 mL/min (90-120)
[2019-10-31 06:54] LABS: POTASSIUM - SERUM 3.3 mmol/L (3.5-5.1)
--- NOTE | 2019-10-31 07:52 | NUR ---
ALERT AND ORIENTED. LUNGS CLEAR BILATERALLY. HEART SOUNDS S1 AND S2 HEARD IN ALL [place]. BOWEL SOUNDS ACTIVE X 4. IV TO LEFT HAND PATENT WITHOUT REDNESS. DENIES NEEDS. BED LOW. CALL ROCHA AND PERSONAL ITEMS IN REACH. WILL CONTINUE TO MONITOR.
[2019-10-31 08:00] VITALS: BP 105/71
--- NOTE | 2019-10-31 08:33 | NUR ---
HAT IN TOILET FOR STOOL SAMPLE. PATIENT EDUCATION PROVIDED. VERBALIZED UNDERSTANDIG.
[2019-10-31 12:42] VITALS: BP 117/76
[2019-10-31 16:00] VITALS: BP 110/74
--- NOTE | 2019-10-31 17:54 | NUR ---
PATIENT STATES IV HURTING TO LEFT HAND. REMOVED WITH TIP INTACT. IV RESITED TO LFA WITH ONE ATTEMPT WITH 20 GAUGE.
[2019-10-31 20:00] VITALS: BP 125/84
--- NOTE | 2019-10-31 21:15 | NUR ---
SITTING UP IN BED. EATING SNACKS. DENIES NAUSEA. STATES SHE HAS HAD DIARRHEA TODAY. BS ARE HYPERACTIVE X4 QUADS. NS @ 125 MLHR INFUSING IN LT FOREARM. REPORTS PAIN IN BACK AND LLQ 6. AMBULATORY. RESP EVEN AND NONLABORED. SR ELEVATED X2. CL IN REACH.
--- NOTE | 2019-10-31 22:08 | NUR ---
NOTIFIED MARSHALL JEWELL OF BENADRYL BEIND DC/D. THIS WAS BEING GIVEN PRIOR TO FLAGYL FOR ADVERSE REACTION OF AGITATION. NEW ORDER NOTED TO CONTINUE BENADRYL.
--- NOTE | 2019-10-31 22:30 | NUR ---
AMBULATED AROUND NURSES STATION. HAD C/O EPIGASTRIC PAIN AND STAFF HAD ENCOURAGED AMBULATION. SHE STATES, "YOU WERE SO RIGHT. I STARTED BELCHING AND PASSING GAS." "I FEEL BETTER".
--- NOTE | 2019-10-31 22:35 | NUR ---
MEDICATED WITH NORCO FOR C/O BACK PAIN.
[2019-11-01 04:00] VITALS: BP 122/78
[2019-11-01 06:21] LABS: BASOPHILS 0.5 % (0-2); EOSINOPHILS 2.5 % (0-7); HEMATOCRIT 34.2 % (36.0-48.0); HEMOGLOBIN 10.8 g/dL (12-16); IMMATURE GRANULOCYTES 0.2 % (0-5); LYMPHOCYTES 26.8 % (15-50); MCH 28.3 pg (26.0-34.0); MCHC 31.6 g/dL (31.0-37.0); MCV 89.5 fL (80.0-100.0); MEAN PLATELET VOLUME 9.9 fL (7.4-10.4); PLATELET COUNT 167 10x3/uL (130-400); RBC 3.82 10x6/uL (4.00-5.40); RDW 12.4 % (11.5-14.5); WBC 4.4 10x3/uL (4.8-10.8)
[2019-11-01 06:27] LABS: ALBUMIN 2.8 g/dL (3.4-5.0); ALKALINE PHOSPHATASE 55 U/L (30-120); ALT (SGPT) 17 U/L (10-68); BILIRUBIN - TOTAL 0.16 mg/dL (0.2-1.3); CALC OSMOLALITY 279 mosm/kg (275-300); CALCIUM 7.4 mg/dL (8.5-10.1); CARBON DIOXIDE 21.1 mmol/L (21.0-32.0); CHLORIDE - SERUM 111 mmol/L (98-107); CREATININE - SERUM 0.7 mg/dL (0.6-1.3); GLUCOSE 95 mg/dL (74-106); MAGNESIUM - SERUM 1.5 mg/dL (1.8-2.4); POTASSIUM - SERUM 3.6 mmol/L (3.5-5.1); PROTEIN - SERUM 4.7 g/dL (6.4-8.2); SODIUM 141 mmol/L (136-145); UREA NITROGEN 10 mg/dL (7-18); eGFR NON AFRICAN AMERICAN > 90 mL/min (90-120)
--- NOTE | 2019-11-01 07:55 | NUR ---
ALERT AND ORIENTED. LUNGS CLEAR BILATERALLY. HEART SOUNDS S1 AND S2 HEARD IN ALL [place]. BOWEL SOUNDS ACTIVE X 4. IV TO LFA PATENT WITHOUT REDNESS. DENIES NEEDS. BED LOW. CALL ROCHA AND PERSONAL ITEMS IN REACH. WILL CONTINUE TO MONITOR.
[2019-11-01 09:15] VITALS: BP 119/82
--- NOTE | 2019-11-01 10:29 | NUR ---
FLO YANEZ NOTIFIED THAT PATIENT REQUESTIONS DISCHARGE.
[2019-11-01] MEDS ORDERED: LEVOFLOXACIN500 MG PO (11:21)
[2019-11-01] MEDS ORDERED: FLAGYL500 MG PO (11:21)
[2019-11-01] MEDS ORDERED: ZOFRAN ODT4 MG/UDTAB PO (11:22)
--- NOTE | 2019-11-01 11:42 | NUR ---
SITTING IN BED. DENIES NEEDS. WILL CONTINUE TO MONITOR.
--- NOTE | 2019-11-01 14:33 | MORECARE ---
CASE MANAGEMENT DISCHARGE SUMMARY PATIENT: AFSHIN PEARCE UNIT: [id number] ADM DATE: 10/30/19 AGE: 39 : [birth year] SEX: F ROOM/BED: D.2238 AUTHOR: LUIS MIGUEL,DOC PHYSICIAN: REFERRING PHYSICIAN: RODNEY HAQ MD DATE OF SERVICE: 11/01/19 Discharge Plan Patient Name: AFSHIN PEARCE Facility: [facility]:[place] : 1980 Planned Disposition: Anticipated Discharge Date: Discharge Date: Expected LOS: Initial Reviewer: [id number] Initial Review Date: 10/30/2019 Generated: 11/01/19 3:32 pm Comments DCP- Discharge Planning Updated by [id number]: Anca Rodríguez on 11/01/19 1:[address] Patient Name: AFSHIN PEARCE Admission Status: ER Accout number: [id number] Admission Date: 10-30-2019 : 1980 Admission Diagnosis:NONINFECTIVE GASTROENTERITIS AND COLITIS, UNSPECIFIED Attending: HONEY Current LOS: 2 Anticipated DC Date: Planned Disposition: Primary Insurance: MEDICARE A & B Discharge Planning Comments: CM met with patient at bedside after explaining CM role and obtaining verbal consent. CM discussed availability / needs of home health, REHAB and medical equipment. PATIENT DENIES ANY DISCHARGE NEEDS. IMM SIGNED. Charm Filter Operator Helper: Anca Rodríguez DCPIA - Discharge Planning Initial Assessment Updated by [email or web address]: Anca Rodríguez on 11/01/19 2:32 pm * Is the patient Alert and Oriented? Yes * PCP MIMI/KVNG * Pharmacy [facility] [address] * Preadmission Environment Home with Family * ADLs Independent * Additional services required to return to the preadmission environment? No * Can the patient safely return to the preadmission environment? Yes * Has this patient been hospitalized within the prior 30 days at any hospital? No Coverage Notice Reviewer: [id number] - Anca Rodríguez Notice Issued Date-Time: 11/01/2019 14:31 Notice Type: IM Discharge Notice Notice Delivered To: Patient Relationship to Patient: Cone Operator Name: Delivery Method: - Elsie Days: Prior Verbal Notification: Recipient Understood Notice: Recipient Signature: Med Rec Note Co-signed by Attending: Coverage Notice Comment: Patient Name: AFSHIN PEARCE Page 03008 at 1433 All edits/amendments must be made on the electronic document DICTATION DATE: 11/01/191431 PLASTER MECHANIC: MARGOTH 11/01/191431 RPT#: [id number] DC DATE: STATUS: ADM IN [facility] [address] [place] [address] END OF REPORT
--- NOTE | 2019-11-01 14:55 | NUR ---
DISCHARGE EDUCATION PROVIDED BOTH WRITTEN AND VERBAL. VERBALIZED UNDERSTANDING. DENIES FURTHER QUESTIONS. IV REMOVED FROM LFA WITH TIP INTACT. PATIENT DC HOME WITH WITH ALL BELONGINGS.
--- NOTE | 2019-11-01 17:35 | MORECARE ---
CASE MANAGEMENT DISCHARGE SUMMARY PATIENT: AFSHIN PEARCE UNIT: [id number] ADM DATE: 10/30/19 AGE: 39 : [birth year] SEX: F ROOM/BED: D.2238 AUTHOR: LUIS MIGUEL,DOC PHYSICIAN: REFERRING PHYSICIAN: RODNEY HAQ MD DATE OF SERVICE: 11/01/19 Discharge Plan Patient Name: AFSHIN PEARCE Facility: [facility]:[place] : 1980 Planned Disposition: Anticipated Discharge Date: Discharge Date: 11/01/2019 Expected LOS: Initial Reviewer: [email or web address] Initial Review Date: 10/30/2019 Generated: 11/01/19 6:34 pm Comments DCP- Discharge Planning Updated by [id number]: Anca Rodríguez on 11/01/19 1:[address] Patient Name: AFSHIN PEARCE Admission Status: ER Accout number: [id number] Admission Date: 10-30-2019 : 1980 Admission Diagnosis:NONINFECTIVE GASTROENTERITIS AND COLITIS, UNSPECIFIED Attending: HONEY Current LOS: 2 Anticipated DC Date: Planned Disposition: Primary Insurance: MEDICARE A & B Discharge Planning Comments: CM met with patient at bedside after explaining CM role and obtaining verbal consent. CM discussed availability / needs of home health, REHAB and medical equipment. PATIENT DENIES ANY DISCHARGE NEEDS. IMM SIGNED. Supervisor Dry Cleaning: Anca Rodríguez DCPIA - Discharge Planning Initial Assessment Updated by [email or web address]: Anca Rodríguez on 11/01/19 2:32 pm * Is the patient Alert and Oriented? Yes * PCP MIMI/KVNG * Pharmacy [facility] [address] * Preadmission Environment Home with Family * ADLs Independent * Additional services required to return to the preadmission environment? No * Can the patient safely return to the preadmission environment? Yes * Has this patient been hospitalized within the prior 30 days at any hospital? No Coverage Notice Reviewer: [id number] - Anca Rodríguez Notice Issued Date-Time: 11/01/2019 14:31 Notice Type: IM Discharge Notice Notice Delivered To: Patient Relationship to Patient: Slackman Name: Delivery Method: - Elsie Days: Prior Verbal Notification: Recipient Understood Notice: Recipient Signature: Med Rec Note Co-signed by Attending: Coverage Notice Comment: Last DP export: 11/01/19 1:33 pm Patient Name: AFSHIN PEARCE Page 21253 at 1735 All edits/amendments must be made on the electronic document DICTATION DATE: 11/01/191734 DATA ASSISTANT: MARGOTH 11/01/191734 RPT#: [id number] DC DATE:11/01/19 STATUS: DIS IN [facility] [address] [place] [address] END OF REPORT
== END 2019-11-01 15:37 | disposition home or self-care (01) | DRG 392 ==
LOC: D.ER 12:42 → D.MS 17:27
PROVIDERS: Family Medicine; ADMIT Family Medicine; ATTEND Family Medicine
DX: K52.9 Noninfective gastroenteritis and colitis, unspecified (principal); F17.203 Nicotine dependence unspecified, with withdrawal; F31.9 Bipolar disorder, unspecified; G40.909 Epilepsy, unspecified, not intractable, without status epilepticus; J45.909 Unspecified asthma, uncomplicated; K21.9 Gastro-esophageal reflux disease without esophagitis; K59.00 Constipation, unspecified; F41.8 Other specified anxiety disorders; F43.10 Post-traumatic stress disorder, unspecified

== ENCOUNTER 2019-11-18 13:41 | Emergency (ER) | payer MEDICARE ==
[~2019-11-18] VITALS: Ht 160 cm; Wt 79.5 kg
[~2019-11-18 13:41] MED LIST changes: +CYMBALTA30 MG; +CYMBALTA60 MG; +HYDROXYCHLOROQ200 MG PO; +TEGRETOL 100 M100 MG PO; +ZYPREXA5 MG PO
[2019-11-18 13:58] VITALS: Ht 160 cm; Wt 79.5 kg
[2019-11-18 14:13] LABS: GLUCOSE NEGATIVE (NEGATIVE); NITRITE NEGATIVE (NEGATIVE)
[2019-11-18 14:14] LABS: BILIRUBIN NEGATIVE (NEGATIVE); KETONE NEGATIVE (NEGATIVE); UROBILINOGEN NORMAL (NORMAL)
[2019-11-18 14:40] LABS: BASOPHILS 0.2 % (0-2); EOSINOPHILS 0.2 % (0-7); HEMATOCRIT 40.8 % (36.0-48.0); HEMOGLOBIN 13.4 g/dL (12-16); IMMATURE GRANULOCYTES 0.1 % (0-5); LYMPHOCYTES 11.7 % (15-50); MCH 29.1 pg (26.0-34.0); MCHC 32.8 g/dL (31.0-37.0); MCV 88.5 fL (80.0-100.0); MEAN PLATELET VOLUME 10.9 fL (7.4-10.4); MONOCYTES 8.8 % (2-11); RBC 4.61 10x6/uL (4.00-5.40); RDW 12.3 % (11.5-14.5); WBC 10.1 10x3/uL (4.8-10.8)
[2019-11-18 14:41] LABS: PLATELET COUNT 210 10x3/uL (130-400)
[2019-11-18 15:11] LABS: ANION GAP 10.4 mmol/L (8-16); CALCIUM 8.6 mg/dL (8.5-10.1); CARBON DIOXIDE 28.5 mmol/L (21.0-32.0); CREATININE - SERUM 0.9 mg/dL (0.6-1.3); POTASSIUM - SERUM 3.9 mmol/L (3.5-5.1)
[2019-11-18 15:17] LABS: ALBUMIN 3.9 g/dL (3.4-5.0); BILIRUBIN - TOTAL 0.49 mg/dL (0.2-1.3); PROTEIN - SERUM 6.6 g/dL (6.4-8.2)
[2019-11-18] MEDS ORDERED: PROMETHAZINE W473 ML PO (15:58)
[2019-11-18] MEDS ORDERED: AUGMENTIN 875-11 TAB PO (15:59)
[2019-11-18 16:26] VITALS: BP 118/80
== END 2019-11-18 16:27 | disposition home or self-care (01) ==
LOC: D.ER 13:41
PROVIDERS: Family Medicine
DX: K52.9 Noninfective gastroenteritis and colitis, unspecified (principal); R11.2 Nausea with vomiting, unspecified; R10.9 Unspecified abdominal pain

== ENCOUNTER 2019-11-30 10:00 | Day surgery (SDC) | payer MEDICARE ==
[~2019-11-30] VITALS: Ht 160 cm; Wt 79.1 kg
[~2019-11-30 10:00] MED LIST changes: +AUGMENTIN 875-11 TAB PO; +PROMETHAZINE W473 ML PO
[2019-11-30 10:19] LABS: HEMATOCRIT 41.4 % (36.0-48.0); HEMOGLOBIN 13.6 g/dL (12-16); MCH 29.3 pg (26.0-34.0); MCHC 32.9 g/dL (31.0-37.0); MCV 89.2 fL (80.0-100.0); MEAN PLATELET VOLUME 10.1 fL (7.4-10.4); RBC 4.64 10x6/uL (4.00-5.40); RDW 12.4 % (11.5-14.5); WBC 6.9 10x3/uL (4.8-10.8)
[2019-11-30 10:45] LABS: HCG SERUM NEGATIVE (NEGATIVE)
[2019-11-30 10:53] VITALS: BP 116/77; Ht 160 cm; Wt 79.1 kg
--- NOTE | 2019-11-30 15:44 | NUR ---
1330 IV REMOVED AND PRESSURE HELD. INSTRUCTIONS GIVEN
--- NOTE | 2019-12-02 10:20 | OP ---
PATIENT NAME: AFSHIN PEARCE MEDICAL RECORD: [id number] :76 LOCATION:[facility] ADMISSION DATE: SURGEON: JESSICA MOON DO DATE OF OPERATION: 11/30/2019 PROCEDURE: EGD with biopsies and balloon dilation as well as a colonoscopy with biopsies. SCOPE: Olympus video gastroscope and Olympus video pediatric colonoscope. MEDICATIONS: Propofol 460 mg IV total for both procedures. WITHDRAWAL TIME DURING COLONOSCOPY: 9 minutes. ESTIMATED BLOOD LOSS: Minimal. COMPLICATIONS: None. FINDINGS: Informed consent was given. The patient was made comfortable with the above medication. After reaching an adequate level of sedation by slow IV push, the patient was placed on her left side. The gastroscope was advanced through the mouth under direct visualization to the second portion of the duodenum with ease. The esophagus appeared normal down to the GE junction. At the GE junction, there were minor changes consistent with LA class A reflux-induced esophagitis and some esophageal stenosis. Biopsies were taken from the midesophagus to rule out the presence of eosinophils. The stenosis at the GE junction was dilated to 20 mm maximum diameter successfully with a CRE through the endoscope balloon. The endoscope was advanced beyond the GE junction into the stomach and retroflexed to view the cardia and fundus, which appeared normal. The body of the stomach appeared normal. Down at the antrum and incisura, there were gastritis changes consisting of some granularity and small ulceration. There was some erythema and friability. Random biopsies were taken in the antrum to submit for histopathology and to rule out the presence of H. pylori. A dedicated biopsy was taken of a specific site in the antrum where there was some focal inflammation. The endoscope was advanced beyond the pylorus into the duodenum, which appeared normal to the second portion. Cold forceps biopsies were taken to submit for histopathology. The endoscope was withdrawn from the patient. The patient was turned around and a digital rectal examination was performed. The endoscope was then advanced under direct visualization through the rectum to the cecum, confirmed by the presence of the appendiceal orifice and ileocecal valve. The endoscope was slowly withdrawn and mucosa was carefully examined. The prep quality was extremely poor, limiting views throughout most of the examination. There were some colitis changes located both at the cecum near the appendiceal orifice and throughout the distal descending colon, sigmoid colon, and rectum. The colitis consisted of loss of vascularity, erythema, friability, and some granularity. Appearances were not consistent with any specific type of colitis, but favors infectious etiologies. The endoscope did reach to the terminal ileum during the examination, and the terminal ileum appeared normal. Dedicated biopsies were taken from sites of colitis to submit for histopathology. Stool was collected to submit for stool studies including a C. difficile toxin, fecal white blood cells, and stool culture. Retroflexion was performed in the rectum with visualization of grade I internal hemorrhoids without bleeding. There were also a few scattered diverticula located in the OPERATIVE REPORT [id number] PEARCE,AFSHIN L sigmoid colon. The endoscope was withdrawn from the patient. The patient tolerated the procedure well and there were no complications. IMPRESSIONS: From esophagogastroduodenoscopy, 1. LA class A reflux-induced esophagitis. 2. Esophageal stenosis at the gastroesophageal junction. 3. Antral gastritis. IMPRESSIONS: From the colonoscopy; 1. Colitis involving the distal descending colon, sigmoid colon and rectum as well as near the appendiceal orifice. 2. Normal terminal ileum. 3. Mild diverticulosis of the sigmoid colon. 4. Grade I internal hemorrhoids without bleeding. PLAN AND RECOMMENDATIONS: 1. Discharge home when recovery parameters are met. 2. Follow up biopsy specimen results. 3. Continue current medications. 4. Continue Protonix 40 mg daily. 5. Prescribed Flagyl 500 mg t.i.d. times 10 days while awaiting biopsy results from colonoscopy. 6. Follow up in GI clinic in 3 weeks. 7. Recall colonoscopy at age 48 or sooner, pending pathology from biopsies taken today. TRANSINT:[id number] Voice Confirmation ID: [id number] DOCUMENT ID: [id number] JESSICA MOON DO at 1020 CC: [id number] DICTATION DATE: 11/30/19 1247 SENIOR ADMINISTRATIVE SUPPORT: 11/30/19 220 [facility] 11/30/19 [facility] [address] [id number]
== END 2019-11-30 13:35 | disposition home or self-care (01) ==
LOC: D.OPS 10:00
PROVIDERS: Anesthesiology; ATTEND Internal Medicine Gastroenterology
DX: K21.0 Gastro-esophageal reflux disease with esophagitis (principal); K22.2 Esophageal obstruction; K52.9 Noninfective gastroenteritis and colitis, unspecified; R11.10 Vomiting, unspecified

== ENCOUNTER 2020-01-27 11:48 | Emergency (ER) | payer MEDICARE ==
[~2020-01-27] VITALS: Ht 160 cm; Wt 79.5 kg
[2020-01-27 11:55] VITALS: Ht 160 cm; Wt 79.5 kg
[2020-01-27 12:17] LABS: BASOPHILS 0.4 % (0-2); EOSINOPHILS 1.3 % (0-7); HEMATOCRIT 42.2 % (36.0-48.0); HEMOGLOBIN 13.8 g/dL (12-16); IMMATURE GRANULOCYTES 0.1 % (0-5); MCH 28.8 pg (26.0-34.0); MCHC 32.7 g/dL (31.0-37.0); MCV 88.1 fL (80.0-100.0); MEAN PLATELET VOLUME 10.2 fL (7.4-10.4); MONOCYTES 19.6 % (2-11); NEUTROPHILS 57.6 % (40-80); RBC 4.79 10x6/uL (4.00-5.40); RDW 12.6 % (11.5-14.5); WBC 7.8 10x3/uL (4.8-10.8)
[2020-01-27 12:18] LABS: PLATELET COUNT 245 10x3/uL (130-400)
[2020-01-27 12:30] LABS: CALC OSMOLALITY 274 mosm/kg (275-300); CHLORIDE - SERUM 104 mmol/L (98-107); GLUCOSE 111 mg/dL (74-106); POTASSIUM - SERUM 3.7 mmol/L (3.5-5.1); SODIUM 137 mmol/L (136-145); UREA NITROGEN 12 mg/dL (7-18); eGFR NON AFRICAN AMERICAN 65 mL/min (90-120)
[2020-01-27 12:35] LABS: ALBUMIN 4.3 g/dL (3.4-5.0); ALKALINE PHOSPHATASE 88 U/L (30-120); ALT (SGPT) 20 U/L (10-68); AMYLASE - SERUM 102 U/L (25-115); BILIRUBIN - TOTAL 0.28 mg/dL (0.2-1.3); LIPASE 160 U/L (73-393); PROTEIN - SERUM 7.5 g/dL (6.4-8.2); TROPONIN-I < 0.017 ng/mL (0.000-0.060)
[2020-01-27 12:45] VITALS: BP 120/89
== END 2020-01-27 14:44 | disposition left against medical advice (07) ==
LOC: D.ER 11:48
PROVIDERS: Family Medicine
DX: R11.2 Nausea with vomiting, unspecified (principal); R10.9 Unspecified abdominal pain; Z53.21 Procedure and treatment not carried out due to patient leaving prior to being seen by health care provider

== ENCOUNTER → 2020-07-31 08:29 | Outpatient (CLI) | payer OTHER, MEDICARE ==
[2020-01-27 11:55] VITALS: BMI 31.0
--- NOTE | ~2020-07-31 | EC ---
PATIENT:AFSHIN PEARCE DATE OF SERVICE: 07/31/20 SEX: F MEDICAL RECORD: [id number] DATE OF : 76 LOCATION:D.[facility]ER[facility] [place] AGE OF PATIENT: 40 ADMISSION DATE: 07/31/20 REFERRING PHYSICIAN: INTERPRETING PHYSICIAN: DOTTIE RODRÍGUEZ MD ECHOCARDIOGRAM REPORT ECHO CHARGES 4 ECHO COMPLETE Date: 07/31/20 CLINICAL DIAGNOSIS: HX OF CARDIAC ARRHYTHIMA RECENT CHEST PAIN, ASSESS EF AND VALVES ECHOCARDIOGRAPHIC MEASUREMENTS (adult normal given) AC root (d.<3.7cm) 3.2 cm LV Septum d (<1.2 cm> 1.0 cm Valve Excursion 1.6 cm LV Septum (systole) 1.1 cm Left Atria (s.<4.0cm> 3.3 cm LVPW d(<1.2cm) 1.1 cm RV (d.<2.3cm) 3.3 cm LVPW (sytole) 1.4 cm LV diastole(<5.6CM) 3.8 cm MV E-F(>70mm/sec) cm LV systole 2.5 cm LVOT Diameter 1.9 cm MV exc.(>10mm) 1.4 cm Est.ejection fraction (50-75%) % DOPPLER: LVIT cm/sec A 59.0 cm/sec E 88.0 cm/sec LA cm/sec RVSP 24 mmHg LVOT 84 cm/sec AOP1/2T m/s Asc. Ao 126 cm/sec RVOT 93 cm/sec RA cm/sec PA 148 cm/sec AV Gradient Peak 6.33 mmHg AV Mean 3.58 mmHg AV Area 2.0 cm MV Gradient Peak 4.27 mmHg MV Mean 1.42 mmHg MV Area cm COMMENTS: Mason[employer] Contractor Administrator: 2 GREY RENDON Bead Wrapper: 3 Dr. Garcia TAPE# PACS Pericardial Effusion N DATE OF SERVICE: Adequate 2D, color-flow imaging, spectral Doppler, and M-Mode FINDINGS: No LVH. LV internal dimensions are normal. Wall motion is normal. EF is greater than or equal to 55%. Aortic valve is tricuspid. No evidence of stenosis by Doppler interrogation. Left atrium is normal at 3.3 cm. Mitral valve shows no prolapse. Trace MR. Right side is grossly normal. Trace TR. ECHOCARDIOGRAM REPORT [id number] AFSHIN PEARCE TRANSINT:[id number] Voice Confirmation ID: [id number] DOCUMENT ID: [id number] DOTTIE RODRÍGUEZ MD CC: [id number] DICTATION DATE: 08/01/20923 STEM LEAD FORMER: 08/01/20 1736 DEP CLI 07/31/20 [place] [id number] [place] [id number]
== END | disposition home or self-care (01) ==
LOC: D.HCCECHO 08:29
PROVIDERS: ATTEND Internal Medicine Interventional Cardiology
DX: I49.9 Cardiac arrhythmia, unspecified (principal)